=== PATIENT | female | born 1950 | race African-American/Black ===

== ENCOUNTER 2018-01-16 12:08 | Observation (INO) | payer OTHER, SELFPAY ==
--- NOTE | 2018-01-16 12:42 | RAD REPORT ---
EXAM DESCRIPTION: [place] Single View01/16/2018 12:34 pm CLINICAL HISTORY: Chest pain COMPARISON: 2014 FINDINGS: The lungs appear clear of acute infiltrate. The heart is normal size IMPRESSION: No acute abnormalities displayed
[2018-01-16 13:01] LABS: Absolute Lymphocytes (CBC) 2.1 K/uL (0.7-4.9); Absolute Monocytes 0.4 K/uL (0.1-1.3); Absolute Neutrophil 6.7 K/uL (1.8-8.0); Basophils % 0.5 % (0-1.3); Eosinophils % 0.3 % (0-4.4); Lymphocytes % 22.9 % (15.3-44.8); MCH 30.7 pg (27.0-35.0); MCV 90.4 fL (80-100); MPV 9.7 fL (7.6-11.3); Monocytes % 4.6 % (3.3-12.3); RBC Red Blood Cell Count 4.09 M/uL (3.86-4.86)
[2018-01-16 13:24] LABS: ALT/SGPT 28 U/L (12-78); AST/SGOT 32 U/L (15-37); Albumin 4.1 g/dL (3.4-5.0); Alkaline Phosphatase 118 U/L (45-117); BUN Blood Urea Nitrogen 12 mg/dL (7-18); Bicarbonate 27 mmol/L (21-32); Bilirubin Direct 0.2 mg/dL (0-0.2); Bilirubin Total 0.6 mg/dL (0.2-1.0); Glucose Level 110 mg/dL (74-106); NT PRO-BNP 46 pg/mL (<125); Potassium 3.5 mmol/L (3.5-5.1); Protein, Total 8.3 g/dL (6.4-8.2); Sodium Level 140 mmol/L (136-145); Troponin (Emerg Dept Use Only) < 0.02 ng/mL (0.0-0.045)
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
--- NOTE | 2018-01-16 14:37 | EDPHYS ---
Physician Documentation [facility] Name: Sandi Powell Age: 67 yrs Sex: Female : 1950 Arrival Date: 01/16/2018 Time: 12:11 Bed 2 Private MD: None, None ED Physician Johnny Gómez HPI: 01/16 12:29 This 67 yrs old Black Female presents to ER via Ambulatory with complaints of Chest rn Pain > 30 y/o. 12:29 The patient or guardian reports chest pain that is located primarily in the substernal rn area. Onset: this morning. The pain does not radiate. Associated signs and symptoms: Pertinent positives: None. Pertinent negatives: abdominal pain, cough, diaphoresis, headache, palpitations, shortness of breath, syncope, vomiting. The chest pain is described as sharp. Duration: The patient or guardian reports multiple episodes, that are intermittent, the episodes last approximately 15 minute(s). Modifying factors: The symptoms are alleviated by nothing. the symptoms are aggravated by nothing. Severity of pain: At its worst the pain was mild in the emergency department the pain is unchanged. The patient has experienced a previous episode. Reports chest pain, sharp, lasts 15 min at a time, non-radiating, began this morning, no abd pain, no vomiting/cough/fever. . Historical: - Allergies: 12:25 No Known Allergies; ph - Home Meds: 12:25 None [Active]; ph - PMHx: 12:25 None; ph - PSHx: 12:25 None; ph - Immunization history:: Adult Immunizations up to date. - Social history:: Smoking status: Patient/guardian denies using tobacco. - Family history:: not pertinent. - Ebola Screening: : Patient negative for fever greater than or equal to 101.5 degrees Fahrenheit, and additional compatible Ebola Virus Disease symptoms Patient denies exposure to infectious person Patient denies travel to an Ebola-affected area in the 21 days before illness onset No symptoms or risks identified at this time. - Hospitalizations: : No recent hospitalization is reported. ROS: 12:29 Constitutional: Negative for fever, chills, and weight loss, Eyes: Negative for injury, rn pain, redness, and discharge, Neck: Negative for injury, pain, and swelling, Cardiovascular: Negative for palpitations, and edema, Respiratory: Negative for shortness of breath, cough, wheezing, and pleuritic chest pain, Abdomen/GI: Negative for abdominal pain, nausea, vomiting, diarrhea, and constipation, MS/Extremity: Negative for injury and deformity, Skin: Negative for injury, rash, and discoloration, Neuro: Negative for headache, weakness, numbness, tingling, and seizure. Exam: 12:29 Constitutional: This is a well developed, well nourished patient who is awake, alert, rn and in no acute distress. Head/Face: Normocephalic, atraumatic. Eyes: Pupils equal round and reactive to light, extra-ocular motions intact. Lids and lashes normal. Conjunctiva and sclera are non-icteric and not injected. Cornea within normal limits. Periorbital areas with no swelling, redness, or edema. Cardiovascular: Regular rate and rhythm with a normal S1 and S2. No gallops, murmurs, or rubs. No JVD. No pulse deficits. Respiratory: Lungs have equal breath sounds bilaterally, clear to auscultation. No rales, rhonchi or wheezes noted. No increased work of breathing, no retractions or nasal flaring. Abdomen/GI: soft, non-tender MS/ Extremity: Pulses equal, no cyanosis. Neurovascular intact. Full, normal range of motion. Equal circumference. Neuro: Awake and alert, GCS 15, oriented to person, place, time, and situation. Cranial nerves II-XII grossly intact. Motor strength 5/5 in all extremities. Sensory grossly intact. Cerebellar exam normal. Normal gait. Vital Signs: 12:23 BP 176 / 92; Pulse 77; Resp 18; Temp 97.4; Pulse Ox 100% on R/A; Weight 44.45 kg; ph Height 5 ft. 4 in. (162.56 cm); Pain 4/10; 17:00 BP 146 / 88; Pulse 76; Resp 17; Temp 97.4; Pulse Ox 99% on R/A; Pain 4/10; sg 12:23 Body Mass Index 16.82 (44.45 kg, 162.56 cm) ph [place] Coma Score: 17:00 Eye Response: spontaneous(4). Verbal Response: oriented(5). Motor Response: obeys sg commands(6). Total: 15. MDM: 12:17 Patient medically screened. rn 14:33 Differential diagnosis: anxiety, coronary artery disease chest wall pain, esophagitis, rn gastritis, gastroesophageal reflux disease (GERD), pneumonia, pneumothorax, stable angina. Data reviewed: vital signs, nurses notes, lab test result(s), EKG, radiologic studies, and as a result, I will admit patient. 14:34 The patient was given aspirin in the Emergency Department. Counseling: I had a detailed rn discussion with the patient and/or guardian regarding: the historical points, exam findings, and any diagnostic results supporting the discharge/admit diagnosis, lab results, radiology results, the need for further work-up and treatment in the hospital. Admission orders: after a detailed discussion of the patient's condition and case, the admit orders are written by me. ED course: Pt admitted for chest pain to Dr. Lopes.. 01/16 12:21 Order name: NT PRO-BNP; Complete Time: 14:02 rn 01/16 12:21 Order name: Basic Metabolic Panel; Complete Time: 14:02 rn 01/16 12:21 Order name: CBC with Diff; Complete Time: 14:02 rn 01/16 12:21 Order name: LFT's; Complete Time: 14:02 rn 01/16 12:21 Order name: Troponin (emerg Dept Use Only); Complete Time: 14:02 rn 01/16 12:21 Order name: XRAY Chest (1 view); Complete Time: 12:57 rn 01/16 12:21 Order name: EKG; Complete Time: 12:22 rn 01/16 12:21 Order name: Cardiac monitoring; Complete Time: 14:03 rn 01/16 12:21 Order name: EKG - Nurse/Tech; Complete Time: 14:03 rn 01/16 12:21 Order name: IV Saline Lock; Complete Time: 14:03 rn 01/16 12:21 Order name: Labs collected and sent; Complete Time: 14:03 rn 01/16 12:21 Order name: O2 Per Protocol; Complete Time: 14:03 rn 01/16 12:21 Order name: O2 Sat Monitoring; Complete Time: 14:03 rn Administered Medications: 15:30 Drug: Aspirin Chewable Tablet 324 mg Route: PO; sg Disposition: 01/16/18 14:36 Hospitalization ordered by Abilio Lopes for Observation. Preliminary diagnosis is Chest pain, unspecified. - Bed requested for Telemetry/MedSurg (observation). - Status is Observation. sg - Condition is Stable. - Problem is new. - Symptoms have improved. UTI on Admission? No Signatures: Dispatcher [employer] EDEmy Nieves RN RN Refugio Varghese RN RN sg Johnny Gómez MD MD rn Hall, Marielos RN RN ph Corrections: (The following items were deleted from the chart) 17:09 14:36 Hospitalization Ordered by Abilio Lopes DO for Observation. Preliminary diagnosis is Chest pain, unspecified. Bed requested for Telemetry/MedSurg (observation). Status is Observation. Condition is Stable. Problem is new. Symptoms have improved. UTI on Admission? No. rn 17:39 17:09 01/16/2018 14:36 Hospitalization Ordered by Abilio Lopes DO for Observation. Preliminary diagnosis is Chest pain, unspecified. Bed requested for Telemetry/MedSurg (observation). Status is Observation. Condition is Stable. Problem is new. Symptoms have improved. UTI on Admission? No. dw
[2018-01-16] MEDS ORDERED: ASPIRIN 81 MG CHEWABLE TABLET ONE (15:47)
--- NOTE | 2018-01-16 17:04 | P.HP ---
Certification for Inpatient Patient admitted to: Observation With expected LOS: <2 Midnights Patient will require the following post-hospital care: None Practitioner: I am a practitioner with admitting privileges, knowledge of patient current condition, hospital course, and medical plan of care. Services: Services provided to patient in accordance with Admission requirements found in Title 42 Section 412.3 of the Code of Federal Regulations Patient History Date of Service: 01/16/18 Primary Care Provider: None Reason for admission: Chest pain History of Present Illness: 67-year-old female presented to the emergency room with chest pain. Patient reported chest pain today. It was mainly to the substernal region. It did not radiate. She reported the pain and being as sharp. It was associated with some nausea and vomiting. She denied any lightheadedness, headaches or palpitation. Patient came to the ER for evaluation. In the ER patient found to have elevated blood pressure. Initial cardiac enzymes unremarkable. CBC unremarkable. Sodium 140, potassium 3.5, chest x- ray unremarkable. EKG showed LVH. Patient was admitted for further evaluation. When I saw the patient ER, chest pain resolved. Patient appeared stable. Patient denies any past medical history. She denies any alcohol or tobacco use. No significant family history of medical problems. 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 She is single. She has no children. - Social History Smoking Status: Never smoker Alcohol use: No CD- Drugs: No Caffeine use: Yes Place of Residence: Home Review of Systems General: As per HPI Eyes: Unremarkable ENT: Unremarkable Respiratory: Unremarkable Cardiovascular: Chest Pain, As per HPI Gastrointestinal: Unremarkable Genitourinary: Unremarkable Musculoskeletal: Unremarkable Integumentary: Unremarkable Neurological: Unremarkable Lymphatics: Unremarkable Physical Examination - Physical Exam General: Alert, In no apparent distress, Oriented x3, Cooperative HEENT: Atraumatic, Normocephalic, PERRLA, Mucous membr. moist/pink Neck: Supple, No Thyromegaly Respiratory: Clear to auscultation bilaterally, Normal air movement Cardiovascular: Normal pulses, Regular rate/rhythm Gastrointestinal: Normal bowel sounds, Soft and benign, Non-distended, No tenderness, No masses, No rebound, No guarding Musculoskeletal: No contractures, No erythema, No tenderness, No warmth Integumentary: No tenderness/swelling, No erythema, No warmth, No cyanosis Neurological: Normal speech, Normal strength at 5/5 x4 extr, Normal tone, Normal affect - Studies Laboratory Data (last 24 hrs) 01/16/18 12:45: WBC 9.3, Hgb 12.6, Hct 37.0, Plt Count 222 01/16/18 12:45: Sodium 140, Potassium 3.5, BUN 12, Creatinine 0.80, Glucose 110 H, Total Bilirubin 0.6, AST 32, ALT 28, Alkaline Phosphatase 118 H Assessment and Plan - Plan Impression: Chest pain Elevated blood pressure likely hypertension Plan: Chest pain: Patient will be admitted for further evaluation. Will monitor cardiac enzymes. Will provide aspirin and Lovenox for DVT prophylaxis. Will order echocardiogram and cardiac stress test to further evaluate her chest pain. Cardiology consulted to further evaluate. Await recommendations. If workup unremarkable possible discharge tomorrow. Elevated blood pressure likely hypertension: Blood pressure elevated. Will start carvedilol. Will monitor and adjust appropriately. Discharge Plan: Home Plan to discharge in: 24 Hours - Advance Directives Does patient have a Living Will: No Does patient have a Durable POA for Healthcare: Yes - Code Status/Comfort Care Code Status Assessed: Yes (Patient full code.) Time Spent Managing Pts Care (In Minutes): 55
[2018-01-16] MEDS ORDERED: ONDANSETRON 4 MG/2 ML VIAL IV PRN (18:39)
[2018-01-16] MEDS ORDERED: ACETAMINOPHEN 500 MG TAB PO PRN (18:39)
[2018-01-16] MEDS ORDERED: HYDRALAZINE HCL 20 MG/ML VIAL IV PRN (18:39)
[2018-01-16] MEDS ORDERED: NITROGLYCERIN 0.4 MG/TAB SL PRN (18:51)
[2018-01-16 19:40] LABS: CKMB Creatine Kinase MB 6.6 ng/mL (0.3-3.6); Creatine Phosphokinase 327 U/L (26-192); Troponin I < 0.02 ng/mL (0.0-0.045)
[2018-01-16] MEDS: CARVEDILOL 6.25 MG TAB PO SCH (20:13)
[2018-01-16] MEDS: ENOXAPARIN 40 MG/0.4 ML SQ SCH (20:14)
[2018-01-16 21:07] VITALS: BMI 16.8
[2018-01-17 03:45] LABS: Absolute Lymphocytes (CBC) 2.3 K/uL (0.7-4.9); Absolute Monocytes 0.5 K/uL (0.1-1.3); Absolute Neutrophil 4.7 K/uL (1.8-8.0); Basophils % 0.2 % (0-1.3); Eosinophils % 0.4 % (0-4.4); Hematocrit 33.6 % (36.0-45.0); Lymphocytes % 30.5 % (15.3-44.8); MCH 30.5 pg (27.0-35.0); MCV 90.4 fL (80-100); MPV 9.5 fL (7.6-11.3); Monocytes % 6.8 % (3.3-12.3); RBC Red Blood Cell Count 3.71 M/uL (3.86-4.86)
[2018-01-17 03:53] LABS: BUN Blood Urea Nitrogen 14 mg/dL (7-18); Bicarbonate 28 mmol/L (21-32); Glucose Level 90 mg/dL (74-106); HDL Cholesterol 57 mg/dL (40-60); LDL Cholesterol, Calculated 132 (<130); Magnesium 2.3 mg/dL (1.8-2.4); Potassium 3.9 mmol/L (3.5-5.1); Sodium Level 140 mmol/L (136-145)
[2018-01-17 04:11] LABS: CKMB Creatine Kinase MB 6.6 ng/mL (0.3-3.6); Creatine Phosphokinase 277 U/L (26-192); Troponin I < 0.02 ng/mL (0.0-0.045)
[2018-01-17 05:27] LABS: Urine Appearance CLOUDY; Urine Bilirubin NEGATIVE (NEG); Urine Blood TRACE (NEG); Urine Color YELLOW; Urine Glucose NEGATIVE (NEG); Urine Protein TRACE (NEG); Urine Specific Gravity 1.025 (1.005-1.030); Urine Urobilinogen 0.2 mg/dL (0.2-1.0); Urine pH 6.5 (5.0-7.0)
[2018-01-17 05:36] LABS: Urine Microscopic Reflex ORDER UMIC
[2018-01-17 05:39] LABS: Urine Bacteria LOADED /HPF (<20); Urine Culture Reflex Order REFLEXED; Urine RBC <5 /HPF (NONE SEEN)
--- NOTE | 2018-01-17 06:59 | EKG ---
Test Date: 2018-01-16 Test Time: 12:23:47 [employer]: RASHEED MEASUREMENT RESULTS: Intervals: Rate: 66 DC: 148 QRSD: 82 QT: 436 QTc: 457 [place]: P: 78 DC: 148 QRS: 66 T: 57 INTERPRETIVE STATEMENTS: Normal sinus rhythm Voltage criteria for left ventricular hypertrophy Abnormal ECG Compared to ECG 04/10/2014 23:32:06 T-wave abnormality no longer present Electronically Signed On 01-17-18 06:59:11 [employer]EST WORKER by Cesar Hernandez
[2018-01-17] MEDS ORDERED: PANTOPRAZOLE 40MG TABLET PO SCH (07:30)
[2018-01-17] MEDS: ENOXAPARIN 40 MG/0.4 ML SQ SCH (08:43)
[2018-01-17] MEDS: CARVEDILOL 6.25 MG TAB PO SCH (08:43)
[2018-01-17] MEDS ORDERED: CEFTRIAXONE/SWI 1gm 1 GM/10 ML SYR IV SCH (09:00)
[2018-01-17] MEDS ORDERED: ASPIRIN EC 81 MG TAB PO SCH (09:00)
[2018-01-17] MEDS ORDERED: REGADENOSON 0.4 MG/5 ML SYR IV ONE (09:08)
[2018-01-17 09:22] VITALS: O2SAT 96
--- NOTE | 2018-01-17 11:14 | ECHO ---
HEIGHT: 5 ft 4 in WEIGHT: 98 lb 0 oz DATE OF STUDY: 01/17/[address]: Abilio Lopes DO 2-DIMENSIONAL: YES M.MODE: YES DOPPLER: YES COLOR FLOW: YES TDS: NO PORTABLE: NO DEFINITY: NO BUBBLE STUDY: NO DIAGNOSIS: CHEST PAIN/HYPERTENSION CARDIAC HISTORY: CATHERIZATION: NO SURGERY: NO PROSTHETIC VALVE: NO PACEMAKER: NO MEASUREMENTS (cm) DIASTOLIC (NORMALS) SYSTOLIC (NORMALS) IVSd 1.0 (0.6-1.2) LA Diam 3.6 (1.9-4.0) LVEF 78% LVIDd 4.2 (3.5-5.7) LVIDs 2.2 (2.0-3.5) %FS 47% LVPWd 1.2 (0.6-1.2) Ao Diam 2.3 (2.0-3.7) 2 DIMENSIONAL ASSESSMENT: RIGHT ATRIUM: NORMAL LEFT ATRIUM: NORMAL RIGHT VENTRICLE: NORMAL LEFT VENTRICLE: NORMAL TRICUSPID VALVE: NORMAL MITRAL VALVE: NORMAL PULMONIC VALVE: NORMAL AORTIC VALVE: NORMAL PERICARDIAL EFFUSION: NONE AORTIC ROOT: NORMAL LEFT VENTRICULAR WALL MOTION: NORMAL. DOPPLER/COLOR FLOW: TRACE OF AORTIC AND TRICUSPID REGURGITATION. NORMAL RIGHT VENTRICULAR SYSTOLIC PRESSURE. COMMENTS: NORMAL 2D ECHO. TRACE OF AORTIC AND TRICUSPID REGURGITATION. TECHNOLOGIST: DIANELYS ALATORRE
--- NOTE | 2018-01-17 11:25 | TREADPHA ---
DX: CHEST PAIN, HYPERTENSION Date of Study: 01/17/2018 Ht: 5 4 Wt: 98 lb 0 oz Consulting Physician: SRINIVAS MEDICATIONS: TYLENOL, COREG, ASPIRIN, APRESOLINE, ZOFRAN, NITROSTAT, LOVENOX, PROTONIX HISTORY: 67 YEAR OLD FEMALE WITH COMPLAINTS OF CHEST PAIN. NO MEDICAL HISTORY. PHYSICIAL EXAMINATION: RESTING B.P.: 127/80 RESTING H.R.: 68 RESTING EKG: SINUS, LEFT VENTRICULAR HYPERTROPHY, NON SPECIFIC T WAVE. PROTOCOL: LEXISCAN EXERCISE TIME: 3:30 B.P. AT PEAK STRESS: 115/89 IMPRESSION: LEXISCAN INJECTED. CARDIOLITE INJECTED PER PROTOCOL. SEE NUCLEAR MEDICINE REPORT. NO SUPRAVENTRICULAR TACHYCARDIA. NO VENTRICULAR TACHYCARDIA. DENIED CHEST PAIN. NON DIAGNOSTIC EKG WITH LEXISCAN STRESS.
--- NOTE | 2018-01-17 11:35 | RAD REPORT ---
EXAM DESCRIPTION: NM - Rest Stress Cardiac Imaging - 01/17/2018 11:20 am CLINICAL HISTORY: CP Chest pain. COMPARISON: No comparisons TECHNIQUE: The patient was administered approximately 10mCi of Tc 99m Sestamibi prior to resting SPE CT imaging of the heart. The patient was then administered approximately 30 mCi of Tc 99m Sestamibi f ollowing exercise or pharmacologic stress. Multiplanar SPECT images were reviewed. FINDINGS: No stress induced ischemic defect is seen to suggest stress induced ischemia. No fixed def ect is seen to suggest hibernating myocardium or scarred myocardium. The end diastolic volume is 78 ml, the end systolic volume is 30 ml, and the ejection fraction is 61 %. IMPRESSION: No stress induced ischemia.
--- NOTE | 2018-01-17 12:10 | CON ---
Chief Complaint: Chest pain. History Of Present Illness: Ms. Powell awoke yesterday feeling fine. After being at work for about an hour, she started to have pain. It was epigastric, nonradiating, constant, accompanied by nausea and vomiting. She threw up 3 times getting a ride home before she came to the hospital. Since she has been here, there has been no EKG or enzyme evidence of any myocardial necrosis. The patient does not take any medications at home. There is no history of diabetes, hypertension, dyslipidemia, stro ke, myocardial infarction, vascular disease. She uses no tobacco. Laboratory Data: Significant for all normal troponins. TSH is slightly elevated. Her complete bloo d count is within normal limits, although the MCV is borderline elevated. Physical Examination: General: She is 5 feet 4 inches, 98 pounds. Blood pressure 143/74, pulse 94, temperature 97.8, hear t rate 70. Lungs: Clear. Heart: Normal. Abdomen: Soft. Extremities: Normal. No cyanosis, clubbing, or edema. Imaging: EKG reveals sinus rhythm, voltage for LVH. Impression: Ms. Powell probably should be on thyroid medicine. Her chest pain does not seem to be an acute coronary syndrome. It would be more consistent with a viral gastroenteritis that is already resolved. I think if we do a nuclear stress test and echo and are normal we could end the workup an d she should probably make contact with the primary care physician and have her thyroid treated and blood pressure treatment initiated t o get her blood pressure slightly lower. SH/MODL Voice ID: [id number] Report ID: [id number]
--- NOTE | 2018-01-17 13:38 | P.DS ---
Admission Date: 01/16/18 Discharge Date: 01/17/18 Primary Care Provider: None Disposition: ROUTINE DISCHARGE Discharge Condition: GOOD Reason for Admission: Chest pain Consultations: Cardiology-Dr. Hernandez Procedures: ECHO: Ejection fraction 78% LEFT VENTRICULAR WALL MOTION: NORMAL. DOPPLER/COLOR FLOW: TRACE OF AORTIC AND TRICUSPID REGURGITATION. NORMAL RIGHT VENTRICULAR SYSTOLIC PRESSURE. COMMENTS: NORMAL 2D ECHO. TRACE OF AORTIC AND TRICUSPID REGURGITATION. Cardiac stress test: No stress-induced ischemia noted Medical problem list: Chest pain, atypical Hypertension with noted EKG showing LVH UTI Hyperlipidemia Subclinical hypothyroidism Brief History of Present Illness: 67-year-old female presented to the emergency room with chest pain. Patient reported chest pain today. It was mainly to the substernal region. It did not radiate. She reported the pain and being as sharp. It was associated with some nausea and vomiting. She denied any lightheadedness, headaches or palpitation. Patient came to the ER for evaluation. In the ER patient found to have elevated blood pressure. Initial cardiac enzymes unremarkable. CBC unremarkable. Sodium 140, potassium 3.5, chest x- ray unremarkable. EKG showed LVH. Patient was admitted for further evaluation. When I saw the patient ER, chest pain resolved. Patient appeared stable. Patient denies any past medical history. She denies any alcohol or tobacco use. No significant family history of medical problems. Hospital Course: Patient presented with atypical chest pain. EKG showed LVH. Patient also had elevated blood pressure indicating hypertension. The patient was admitted for further evaluation and treatment. Repeat troponin unremarkable. Cardiology was consulted. Cardiology recommended echocardiogram and cardiac stress test to further evaluate. Echocardiogram unremarkable. Cardiac stress test showed no stress-induced ischemia. At discharge patient will continue with aspirin 81 mg daily. Patient has been started on blood pressure medication-carvedilol 6.25 mg 1 pill twice daily with good control. This medication will be continued at discharge. Recommendation is to maintain blood pressures less 150/ 80. Further adjustment can be done by her PCP. Patient will need to establish care to follow up this hospitalization. Patient was found to have a UTI. At discharge she will continue with Bactrim DS 1 pill twice daily for 7 days. UTI prevention will be provided. Patient will need to have her PCP follow up on urine culture results. Patient has hyperlipidemia. LDL 132. At discharge patient will be started on Lipitor 20 mg daily. Recommendation to recheck lab-fasting lipid panel in 4-6 weeks to monitor her progress. Patient found to have subclinical hypothyroidism. Tsh elevated with normal free T4. Recommendation to recheck tsh and free T4 in 4-6 weeks to reassess. Patient may require medication in the future if this continues to be abnormal. Vital Signs/Physical Exam: Temp Pulse Resp BP Pulse Ox 98.1 F 68 16 125/70 97 01/17/18 12:00 18 12:00 01/17/18 12:00 01/17/18 12:00 01/17/18 12:00 General: Alert, In no apparent distress, Oriented x3, Cooperative HEENT: Atraumatic Neck: Supple Respiratory: Clear to auscultation bilaterally, Normal air movement Cardiovascular: Normal pulses, Regular rate/rhythm Gastrointestinal: Normal bowel sounds, Soft and benign, Non-distended, No tenderness, No masses, No rebound, No guarding Musculoskeletal: No erythema, No tenderness, No warmth Integumentary: No tenderness/swelling, No erythema, No warmth, No cyanosis Neurological: Normal speech, Normal strength at 5/5 x4 extr, Normal tone, Normal affect Laboratory Data at Discharge: WBC 7.5 K/uL (4.3-10.9) D 01/17/18 03:18 Hgb 11.3 g/dL (12.0-15.0) L 01/17/18 03:18 Hct 33.6 % (36.0-45.0) L 01/17/18 03:18 Plt Count 196 K/uL (152-406) 01/17/18 03:18 Sodium 140 mmol/L (136-145) 01/17/18 03:18 Potassium 3.9 mmol/L (3.5-5.1) 01/17/18 03:18 BUN 14 mg/dL (7-18) 01/17/18 03:18 Creatinine 0.60 mg/dL (0.55-1.3) 01/17/18 03:18 Glucose 90 mg/dL (74-106) 01/17/18 03:18 Magnesium 2.3 mg/dL (1.8-2.4) 01/17/18 03:18 Total Bilirubin 0.6 mg/dL (0.2-1.0) 01/16/18 12:45 AST 32 U/L (15-37) 01/16/18 12:45 ALT 28 U/L (12-78) 01/16/18 12:45 Alkaline Phosphatase 118 U/L (45-117) H 01/16/18 12:45 Troponin I < 0.02 ng/mL (0.0-0.045) 01/17/18 03:18 Triglycerides 59 mg/dL (<150) 01/17/18 03:18 Cholesterol 201 mg/dL (<200) H 01/17/18 03:18 HDL Cholesterol 57 mg/dL (40-60) 01/17/18 03:18 Cholesterol/HDL Ratio 3.53 01/17/18 03:18 Home Medications: Aspirin [Aspirin EC 81 MG] 81 mg PO DAILY #90 tablet. 01/17/18 Atorvastatin Calcium [Lipitor] 20 mg PO BEDTIME #30 tab 01/17/18 Carvedilol [Coreg*] 6.25 mg PO BID #60 tab 01/17/18 Sulfamethoxazole/Trimethoprim [Bactrim Ds Tablet] 1 each PO BID #14 tablet 01/17 New Medications: Aspirin [Aspirin EC 81 MG] 81 mg PO DAILY #90 tablet. Atorvastatin Calcium [Lipitor] 20 mg PO BEDTIME #30 tab Carvedilol [Coreg*] 6.25 mg PO BID #60 tab Sulfamethoxazole/Trimethoprim [Bactrim Ds Tablet] 1 each PO BID #14 tablet Patient Discharge Instructions: 1. Patient will need to establish care with a PCP to follow up this hospitalization. 2. Patient presented with atypical chest pain. EKG showed LVH. Patient also had elevated blood pressure indicating hypertension. The patient was admitted for further evaluation and treatment. Repeat troponin unremarkable. Cardiology was consulted. Cardiology recommended echocardiogram and cardiac stress test to further evaluate. Echocardiogram unremarkable. Cardiac stress test showed no stress- induced ischemia. At discharge patient will continue with aspirin 81 mg daily. Patient has been started on blood pressure medication-carvedilol 6.25 mg 1 pill twice daily with good control. This medication will be continued at discharge. Recommendation is to maintain blood pressures less 150/80. Further adjustment can be done by her PCP. Patient will need to establish care to follow up this hospitalization. 3. Patient was found to have a UTI. At discharge she will continue with Bactrim DS 1 pill twice daily for 7 days. UTI prevention will be provided. Patient will need to have her PCP follow up on urine culture results. 4. Patient has hyperlipidemia. LDL 132. At discharge patient will be started on Lipitor 20 mg daily. Recommendation to recheck lab- fasting lipid panel in 4-6 weeks to monitor her progress. 5. Patient found to have subclinical hypothyroidism. Tsh elevated with normal free T4. Recommendation to recheck tsh and free T4 in 4-6 weeks to reassess. Patient may require medication in the future if this continues to be abnormal. Diet: AHA Activity: Ad migel Time spent managing pt's care (in minutes): 55
[2018-01-17 17:19] VITALS: BP 114/70; TEMP 98.5
== END 2018-01-17 17:50 | disposition home or self-care (01) ==
LOC: ER 12:08 → ERHOLD 15:20 → 4TH 17:24
PROVIDERS: ADMIT Family Medicine; ATTEND Family Medicine
DX: R07.89 Other chest pain (principal); I10 Essential (primary) hypertension; N39.0 Urinary tract infection, site not specified; E78.5 Hyperlipidemia, unspecified; E02 Subclinical iodine-deficiency hypothyroidism
CPT/HCPCS: 36415; 71045; 78452; 80048; 80061; 80076; 81003; 81015; 82550; 82553; 83735; 83880; 84439; 84443; 84484; 85025; 87077; 87086; 87088; 87186; 93005; 93017; 93306; 99285; A9500; G0378; J0696; J1650; J2785

== ENCOUNTER 2019-02-21 22:35 | Observation (INO) | payer OTHER ==
[2019-02-21] MEDS ORDERED: NA CHLORIDE 0.9% 1,000 ML ONE (23:04)
[2019-02-21] MEDS ORDERED: ONDANSETRON 4 MG/2 ML VIAL ONE (23:04)
[2019-02-21] MEDS ORDERED: ASPIRIN 81 MG CHEWABLE TABLET ONE (23:04)
[2019-02-21 23:18] LABS: Protime INR 1.01
[2019-02-21 23:19] LABS: Absolute Lymphocytes (CBC) 1.9 K/uL (0.7-4.9); Basophils % 0.4 % (0-1.3); Hematocrit 40.9 % (36.0-45.0); Lymphocytes % 20.6 % (15.3-44.8); MPV 9.8 fL (7.6-11.3); RBC Red Blood Cell Count 4.61 M/uL (3.86-4.86)
[2019-02-21 23:36] LABS: ALT/SGPT 44 U/L (12-78); AST/SGOT 37 U/L (15-37); Albumin 4.2 g/dL (3.4-5.0); Alkaline Phosphatase 120 U/L (45-117); BUN Blood Urea Nitrogen 12 mg/dL (7-18); Bicarbonate 24 mmol/L (21-32); Bilirubin Direct 0.2 mg/dL (0-0.2); Bilirubin Total 0.8 mg/dL (0.2-1.0); Glucose Level 138 mg/dL (74-106); Magnesium 1.9 mg/dL (1.8-2.4); NT PRO-BNP 26 pg/mL (<125); Potassium 4.1 mmol/L (3.5-5.1); Protein, Total 8.6 g/dL (6.4-8.2); Sodium Level 143 mmol/L (136-145); Troponin (Emerg Dept Use Only) < 0.02 ng/mL (0.0-0.045)
[2019-02-21] MEDS ORDERED: LIDOCAINE VISCOUS 2% SOLN 15 ML UDC ONE (23:59)
[2019-02-21] MEDS ORDERED: MAGNE/ALUM HYDROXD 30 ML UCUP ONE (23:59)
[2019-02-22] MEDS ORDERED: NITROGLYCERIN 1 GM PKT TD ONE (00:51)
--- NOTE | 2019-02-22 00:57 | EDPHYS ---
Physician Documentation [facility] Name: Sandi Powell Age: 69 yrs Sex: Female : 1950 Arrival Date: 02/21/2019 Time: 22:40 Bed 15 Private MD: ED Physician Philip Lala HPI: 02/22 00:21 This 69 yrs old Black Female presents to ER via Ambulatory with complaints of Chest tw4 Pain, Vomiting. 00:21 The patient or guardian reports chest pain that is located primarily in the anterior tw4 chest wall, left. Onset: just prior to arrival, today. The pain does not radiate. Associated signs and symptoms: Pertinent positives: abdominal pain, nausea, vomiting, Pertinent negatives: cough, diaphoresis, dizziness, headache, lower extremity pain, lower extremity swelling, lightheadedness, near syncope, palpitations, recent travel, shortness of breath, syncope. The chest pain is described as sharp. Duration: The patient or guardian reports a single episode, that is still ongoing, but improving. Modifying factors: The symptoms are alleviated by nothing. the symptoms are aggravated by nothing. Severity of pain: At its worst the pain was moderate in the emergency department the pain is unchanged. The patient has not experienced similar symptoms in the past. Historical: - Allergies: 02/21 22:45 No Known Allergies; mg2 - Home Meds: 22:45 None [Active]; mg2 - PMHx: 22:45 None; mg2 - PSHx: 22:45 None; mg2 - Immunization history:: Flu vaccine is up to date. - Social history:: Smoking status: Patient/guardian denies using tobacco, Patient/guardian denies using alcohol, street drugs, IV drugs. - Ebola Screening: : No symptoms or risks identified at this time. ROS: 02/22 00:21 Constitutional: Negative for fever, chills, and weight loss, Eyes: Negative for injury, tw4 pain, redness, and discharge, Neck: Negative for injury, pain, and swelling, Respiratory: Negative for shortness of breath, cough, wheezing, and pleuritic chest pain, Back: Negative for injury and pain, MS/Extremity: Negative for injury and deformity, Skin: Negative for injury, rash, and discoloration, Neuro: Negative for headache, weakness, numbness, tingling, and seizure. Cardiovascular: Positive for chest pain, Negative for edema, orthopnea, palpitations, paroxysmal nocturnal dyspnea. Abdomen/GI: Positive for abdominal pain, nausea and vomiting, nausea, vomiting, and diarrhea, nausea, vomiting, abdominal cramps, Negative for abdominal distension, anorexia, dysphagia, hematemesis, black/tarry stool, rectal pain, rectal bleeding, bowel incontinence. Exam: 00:21 Constitutional: This is a well developed, well nourished patient who is awake, alert, tw4 and in no acute distress. Head/Face: Normocephalic, atraumatic. Chest/axilla: Normal chest wall appearance and motion. Nontender with no deformity. No lesions are appreciated. Cardiovascular: Regular rate and rhythm with a normal S1 and S2. No gallops, murmurs, or rubs. Normal PMI, no JVD. No pulse deficits. Respiratory: Lungs have equal breath sounds bilaterally, clear to auscultation and percussion. No rales, rhonchi or wheezes noted. No increased work of breathing, no retractions or nasal flaring. 00:21 Back: No spinal tenderness. No costovertebral tenderness. Full range of motion. Skin: Warm, dry with normal turgor. Normal color with no rashes, no lesions, and no evidence of cellulitis. MS/ Extremity: Pulses equal, no cyanosis. Neurovascular intact. Full, normal range of motion. Neuro: Awake and alert, GCS 15, oriented to person, place, time, and situation. Cranial nerves II-XII grossly intact. Motor strength 5/5 in all extremities. Sensory grossly intact. Cerebellar exam normal. Normal gait. 00:21 Abdomen/GI: Inspection: abdomen appears normal, Bowel sounds: diminished, Palpation: moderate abdominal tenderness, in the epigastric area. Vital Signs: 02/21 22:44 BP 157 / 96; Pulse 108; Resp 18; Temp 99; Pulse Ox 99% on R/A; Weight 47.63 kg; Height mg2 5 ft. 4 in. (162.56 cm); Pain 8/10; 02/22 00:02 BP 159 / 90; Pulse 94; Resp 17 S; Pulse Ox 100% on R/A; jd3 00:55 BP 146 / 90; Pulse 79; Resp 18 S; Pulse Ox 99% on R/A; jd3 01:56 BP 159 / 88; Pulse 81; Resp 16 S; Pulse Ox 98% on R/A; jd3 02/21 22:44 Body Mass Index 18.02 (47.63 kg, 162.56 cm) mg2 MDM: 02/21 22:47 Patient medically screened. 02/22 00:21 Differential diagnosis: abnormal EKG, cholecystitis, Cholelithiasis costochondritis, tw4 pulmonary embolus, stable angina, thoracic aortic disection. Data reviewed: vital signs, nurses notes. Data reviewed: lab test result(s), cardiac enzymes, CBC, electrolytes, EKG. Data interpreted: dietetic aide: rhythm is sinus tachycardia, Pulse oximetry: Interpretation: normal. Test interpretation: by ED physician or midlevel provider: ECG, plain radiologic studies. Counseling: I had a detailed discussion with the patient and/or guardian regarding: the historical points, exam findings, and any diagnostic results supporting the discharge/admit diagnosis. 02/21 22:47 Order name: Basic Metabolic Panel; Complete Time: 00:20 02/22 00:20 Interpretation: Normal except: GLUC 138; CL 110; GFR 84. 02/21 22:47 Order name: CBC with Diff; Complete Time: 00:20 02/22 00:21 Interpretation: Normal except: THOM% 74.8. 02/21 22:47 Order name: LFT's; Complete Time: 00:21 02/22 00:21 Interpretation: Normal except: ALK 120; TP 8.6; GLOB 4.4; A/G 1.0. 02/21 22:47 Order name: Magnesium; Complete Time: 00:21 02/22 00:21 Interpretation: Within normal limits: MG 1.9. 02/21 22:47 Order name: NT PRO-BNP; Complete Time: 00:21 02/22 00:21 Interpretation: Within normal limits: NT PRO-BNP 26. 02/21 22:47 Order name: PT-INR; Complete Time: 00:21 02/22 00:21 Interpretation: Within normal limits: PT 11.9. 02/21 22:47 Order name: Troponin (emerg Dept Use Only); Complete Time: 00:21 02/22 00:21 Interpretation: Within normal limits: TROPED < 0.02. tw4 02/21 22:47 Order name: XRAY Chest (1 view) [facility] 02/22 01:04 Order name: Echo with Doppler [facility] 02/22 01:05 Order name: Lipid Profile [facility] 02/22 01:05 Order name: Lipid Profile [facility] 02/22 01:05 Order name: Troponin I [facility] 02/22 01:05 Order name: Troponin I [facility] 02/22 01:05 Order name: Troponin I [facility] 02/21 22:47 Order name: EKG; Complete Time: 22:48 02/21 22:47 Order name: Cardiac monitoring; Complete Time: 22:58 02/21 22:47 Order name: EKG - Nurse/Tech; Complete Time: 22:58 02/21 22:47 Order name: IV Saline Lock; Complete Time: 22:58 02/21 22:47 Order name: Labs collected and sent; Complete Time: 22:58 02/21 22:47 Order name: O2 Per Protocol; Complete Time: 22:58 02/21 22:47 Order name: O2 Sat Monitoring; Complete Time: 22:58 02/22 01:04 Order name: Heart Healthy [facility] 02/22 01:04 Order name: EKG Electrocardiogram [facility] 02/22 01:04 Order name: EKG Electrocardiogram [facility] EC:21 Rate is 102 beats/min. Rhythm is regular. QRS [place] is Normal. SD interval is normal. tw4 QRS interval is normal. QT interval is normal. No Q waves. T waves are Normal. No ST changes noted. Clinical impression: NSR w/ Non-specific ST/T Changes and Sinus tachycardia. Interpreted by me. Reviewed by me. Administered Medications: 02/21 23:08 Drug: NS 0.9% 1000 ml Route: IV; Rate: 1 bolus; Site: right antecubital; [facility] 02/22 01:57 Follow up: Response: No adverse reaction; IV Status: Completed infusion; IV Intake: jd3 1000ml 02/21 23:08 Drug: Zofran 4 mg Route: IVP; Site: right antecubital; d3 02/22 00:05 Follow up: Response: No adverse reaction [facility] 02/21 23:08 Drug: Aspirin Chewable Tablet 324 mg Route: PO; 02/22 00:05 Follow up: Response: No adverse reaction jd3 00:01 Drug: GI Cocktail without - (Maalox Suspension 30 ml, Lidocaine Liquid 2 % 15 jd3 ml) Route: PO; 01:00 Follow up: Response: No adverse reaction jd3 00:52 Drug: Nitro-Bid Ointment 2 % 0.5 inches Route: Transdermal; Site: anterior chest wall; jd3 01:50 Follow up: Response: No adverse reaction; Pain is decreased jd3 01:28 Drug: Zofran 4 mg Route: IVP; Site: right antecubital; jd3 01:59 Follow up: Response: No adverse reaction jd3 Disposition: 02/22/19 00:56 Hospitalization ordered by Crystal May for Observation. Preliminary diagnosis are Angina pectoris, unspecified, Nausea with vomiting, unspecified. - Bed requested for Telemetry/MedSurg (observation). - Status is Observation. jd3 - Condition is Stable. - Problem is new. - Symptoms have improved. UTI on Admission? No Signatures: Dispatcher [employer] EDMS Cammie Butler RN RN tl1 Lavon Acosta RN RN jd3 Philip Lala MD MD tw4 Buddy Blevins RN RN mg2 Corrections: (The following items were deleted from the chart) 00:56 00:56 Hospitalization Ordered by Crystal May MD for Observation. Preliminary tw4 diagnosis is Angina pectoris, unspecified. Bed requested for Telemetry/MedSurg (observation). Status is Observation. Condition is Stable. Problem is new. Symptoms have improved. UTI on Admission? No. tw4 01:34 00:56 02/22/2019 00:56 Hospitalization Ordered by Crystal May MD for Observation. tl1 Preliminary diagnosis is Angina pectoris, unspecified; Nausea with vomiting, unspecified. Bed requested for Telemetry/MedSurg (observation). Status is Observation. Condition is Stable. Problem is new. Symptoms have improved. UTI on Admission? No. tw4 02:15 01:34 02/22/2019 00:56 Hospitalization Ordered by Crystal May MD for Observation. jd3 Preliminary diagnosis is Angina pectoris, unspecified; Nausea with vomiting, unspecified. Bed requested for Telemetry/MedSurg (observation). Status is Observation. Condition is Stable. Problem is new. Symptoms have improved. UTI on Admission? No. tl1
--- NOTE | 2019-02-22 00:57 | ER ---
Nurse's Notes [facility] Name: Sandi Powell Age: 69 yrs Sex: Female : 1950 Arrival Date: 02/21/2019 Time: 22:40 Bed 15 Private MD: Diagnosis: Angina pectoris, unspecified;Nausea with vomiting, unspecified Presentation: 02/21 22:42 Presenting complaint: Patient states: i have chest pain and vomiting x4 this evening. mg2 Transition of care: patient was not received from another setting of care. Onset of symptoms was February 21, 2019. Risk Assessment: Do you want to hurt yourself or someone else? Patient reports no desire to harm self or others. Initial Sepsis Screen: Does the patient meet any 2 criteria? No. Patient's initial sepsis screen is negative. Does the patient have a suspected source of infection? No. Patient's initial sepsis screen is negative. Care prior to arrival: None. 22:42 Method Of Arrival: Ambulatory mg2 22:42 Acuity: PATRICIA 3 mg2 Historical: - Allergies: 22:45 No Known Allergies; mg2 - Home Meds: 22:45 None [Active]; mg2 - PMHx: 22:45 None; mg2 - PSHx: 22:45 None; mg2 - Immunization history:: Flu vaccine is up to date. - Social history:: Smoking status: Patient/guardian denies using tobacco, Patient/guardian denies using alcohol, street drugs, IV drugs. - Ebola Screening: : No symptoms or risks identified at this time. Screenin:19 Abuse screen: Denies threats or abuse. Nutritional screening: No deficits noted. jd3 Tuberculosis screening: No symptoms or risk factors identified. Fall Risk IV access (20 points). Ambulatory Aid- None/Bed Rest/Nurse Assist (0 pts). Gait- Normal/Bed Rest/Wheelchair (0 pts) Mental Status- Oriented to own ability (0 pts). Total [place] Scale indicates No Risk (0-24 pts). Assessment: 22:55 General: Appears in no apparent distress. uncomfortable, Behavior is calm, cooperative, jd3 appropriate for age. Pain: Complains of pain in chest and epigastric area Pain does not radiate. Quality of pain is described as pressure, Pain began suddenly. Neuro: Level of Consciousness is awake, alert, obeys commands, Oriented to person, place, time, situation. Cardiovascular: Reports None Heart tones S1 S2 present Capillary refill < 3 seconds Patient's skin is warm and dry. Rhythm is sinus tachycardia. Respiratory: Airway is patent Respiratory effort is even, unlabored, Respiratory pattern is regular, symmetrical, Breath sounds are clear bilaterally. Denies cough, shortness of breath. GI: Abdomen is non-distended, Bowel sounds present X 4 quads. Abd is soft and non tender X 4 quads. Reports nausea, vomiting, Patient currently denies constipation, diarrhea. : No signs and/or symptoms were reported regarding the genitourinary system. EENT: No signs and/or symptoms were reported regarding the EENT system. Derm: Skin is intact, Skin is dry, Skin is normal, Skin temperature is warm. Musculoskeletal: Circulation, motion, and sensation intact. Range of motion: intact in all extremities. 23:57 Reassessment: Patient appears in no apparent distress at this time. Patient and/or jd3 family updated on plan of care and expected duration. Pain level reassessed. Patient is alert, oriented x 3, equal unlabored respirations, skin warm/dry/pink. pt reporting nausea feeling better, but continued pain in her abdomen. provider notified. 02/22 00:50 Reassessment: Patient appears in no apparent distress at this time. Patient and/or jd3 family updated on plan of care and expected duration. Pain level reassessed. Patient is alert, oriented x 3, equal unlabored respirations, skin warm/dry/pink. pt reporting continued pain, provider notified. 01:53 Reassessment: Patient appears in no apparent distress at this time. Patient and/or jd3 family updated on plan of care and expected duration. Pain level reassessed. Patient is alert, oriented x 3, equal unlabored respirations, skin warm/dry/pink. report given to Malia CARPENTER, nurse for room 428. Patient states feeling better. Vital Signs: 02/21 22:44 BP 157 / 96; Pulse 108; Resp 18; Temp 99; Pulse Ox 99% on R/A; Weight 47.63 kg; Height mg2 5 ft. 4 in. (162.56 cm); Pain 8/10; 02/22 00:02 BP 159 / 90; Pulse 94; Resp 17 S; Pulse Ox 100% on R/A; jd3 00:55 BP 146 / 90; Pulse 79; Resp 18 S; Pulse Ox 99% on R/A; jd3 01:56 BP 159 / 88; Pulse 81; Resp 16 S; Pulse Ox 98% on R/A; jd3 02/21 22:44 Body Mass Index 18.02 (47.63 kg, 162.56 cm) mg2 ED Course: 02/21 22:40 Patient arrived in ED. jg7 22:44 Triage completed. mg2 22:45 Arm band placed on. mg2 22:47 Philip Lala MD is Attending Physician. tw4 22:58 Lavon Acosta RN is Primary Nurse. jd3 23:00 Inserted saline lock: 20 gauge in right antecubital area, using aseptic technique. mg2 Blood collected. 23:20 Patient has correct armband on for positive identification. Bed in low position. Call jd3 light in reach. Side rails up X 1. Adult w/ patient. library monitor on. Pulse ox on. NIBP on. 23:20 Patient maintains SpO2 saturation greater than 95% on room air. jd3 23:26 XRAY Chest (1 view) In Process Unspecified. EDMS 02/22 00:56 Crystal May MD is Hospitalizing Provider. tw4 01:55 No provider procedures requiring assistance completed. Patient admitted, IV remains in jd3 place. Administered Medications: 02/21 23:08 Drug: NS 0.9% 1000 ml Route: IV; Rate: 1 bolus; Site: right antecubital; jd3 02/22 01:57 Follow up: Response: No adverse reaction; IV Status: Completed infusion; IV Intake: jd3 1000ml 02/21 23:08 Drug: Zofran 4 mg Route: IVP; Site: right antecubital; jd3 02/22 00:05 Follow up: Response: No adverse reaction jd3 02/21 23:08 Drug: Aspirin Chewable Tablet 324 mg Route: PO; jd3 02/22 00:05 Follow up: Response: No adverse reaction jd3 00:01 Drug: GI Cocktail without - (Maalox Suspension 30 ml, Lidocaine Liquid 2 % 15 jd3 ml) Route: PO; 01:00 Follow up: Response: No adverse reaction jd3 00:52 Drug: Nitro-Bid Ointment 2 % 0.5 inches Route: Transdermal; Site: anterior chest wall; jd3 01:50 Follow up: Response: No adverse reaction; Pain is decreased jd3 01:28 Drug: Zofran 4 mg Route: IVP; Site: right antecubital; jd3 01:59 Follow up: Response: No adverse reaction jd3 Intake: 01:57 IV: 1000ml; Total: 1000ml. jd3 Outcome: 00:56 Decision to Hospitalize by Provider. tw4 01:55 Admitted to Tele accompanied by nurse, via wheelchair, room 428, with chart, Report jd3 called to Malia CARPENTER 01:55 Condition: stable 01:55 Instructed on the need for admit, Demonstrated understanding of instructions. 02:15 Patient left the ED. jd3 Signatures: Dispatcher [employer] Lavon Orosco RN RN jd3 Wadley, Terrence, MD MD tw4 Buddy Blevins RN RN [facility] Leona Leg7
[2019-02-22] MEDS ORDERED: ALPRAZOLAM 0.25 MG TABLET PO PRN (00:59)
[2019-02-22] MEDS ORDERED: NITROGLYCERIN 0.4 MG/TAB SL PRN (00:59)
[2019-02-22] MEDS ORDERED: ACETAMINOPHEN 500 MG TAB PO PRN (00:59)
[2019-02-22] MEDS ORDERED: ONDANSETRON 4 MG/2 ML VIAL ONE (01:26)
[2019-02-22 02:35] VITALS: BMI 19.7
[2019-02-22] MEDS: MORPHINE 4 MG/ML SYR IV PRN ×2 (02:36→06:49)
[2019-02-22 05:13] LABS: HDL Cholesterol 63 mg/dL (40-60); LDL Cholesterol, Calculated 160 (<130); Troponin I < 0.02 ng/mL (0.0-0.045)
[2019-02-22] MEDS: METOPROLOL TAR 50 MG TAB PO SCH ×2 (06:16→09:00)
[2019-02-22] MEDS ORDERED: PNEUMOCOCCAL VACCINE 0.5 ML IMVAC ONE (08:00)
--- NOTE | 2019-02-22 08:08 | EKG ---
Test Date: 2019-02-21 Test Time: 22:55:27 Chemistry Laboratory Technician: LOIS MEASUREMENT RESULTS: Intervals: Rate: 102 OK: 146 QRSD: 80 QT: 340 QTc: 443 [place]: P: 70 OK: 146 QRS: 58 T: 31 INTERPRETIVE STATEMENTS: Sinus tachycardia Possible Left atrial enlargement Cannot rule out Anterior infarct, age undetermined Abnormal ECG Compared to ECG 01/16/2018 12:23:47 Myocardial infarct finding now present Sinus rhythm no longer present Left ventricular hypertrophy no longer present Electronically Signed On 02-22-19 08:07:20 PRODUCTION LEAD by Brooks Nance
--- NOTE | 2019-02-22 08:14 | RAD REPORT ---
EXAM DESCRIPTION: [place] Single View02/21/2019 11:26 pm CLINICAL HISTORY: Chest pain COMPARISON: 2017 FINDINGS: The right hemidiaphragm remains elevated The The lungs appear clear of acute infiltrate. The heart is normal size IMPRESSION: No acute abnormalities displayed
[2019-02-22 08:57] VITALS: O2SAT 99
[2019-02-22] MEDS ORDERED: ENOXAPARIN 40 MG/0.4 ML SQ SCH (09:00)
[2019-02-22] MEDS ORDERED: ASPIRIN EC 81 MG TAB PO SCH (09:00)
--- NOTE | 2019-02-22 10:42 | P.SSS ---
Patient History Date of Service: 02/22/19 Reason for admission: CHEST PAIN RULE OUT ACUTE CORONARY SYNDROME History of Present Illness: PATIENT IS A 69-YEAR-OLD FEMALE WHO PRESENTS TO THE EMERGENCY ROOM WITH CHEST DISCOMFORT. PAIN IS MAINLY IN THE STERNAL REGION. THERE IS NO RADIATION OF HER PAIN. SHE DOES NOT GET SHORT OF BREATH NOR DID SHE GET DIAPHORETIC. SHE HAS BEEN HAVING THIS VAGUE DISCOMFORT FOR QUITE A WHILE. SHE HAD A STRESS TEST DONE A YEAR AGO WHICH WAS UNREMARKABLE. SHE STATES SHE FEELS MUCH BETTER WHEN I ASSESSED HER IN THE MORNING. SHE HAS SERIAL TROPONINS PENDING AND IF THESE ARE NEGATIVE SHE IS STABLE FOR DISCHARGE HOME WITH OUTPATIENT FOLLOW-UP. 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 She is single. She has no children. - Family History Family History: Reviewed- Non-Contributory - Family History Father -: Heart disease - Social History Smoking Status: Never smoker Alcohol use: No CD- Drugs: No Caffeine use: No Place of Residence: Home Review of Systems 10-point ROS is otherwise unremarkable Physical Examination - Vital Signs Temperature: 99 F Blood Pressure: 133/83 Pulse: 86 Respirations: 18 Pulse Ox (%): 99 - Physical Exam General: Alert, In no apparent distress, Oriented x3 HEENT: Atraumatic, PERRLA, Mucous membr. moist/pink, EOMI, Sclerae nonicteric Neck: Supple, 2+ carotid pulse no bruit, No LAD, Without JVD or thyroid abnormality Respiratory: Clear to auscultation bilaterally, Normal air movement Cardiovascular: Regular rate/rhythm, Normal S1 S2, No murmurs Gastrointestinal: Normal bowel sounds, Soft and benign, Non-distended, No tenderness Musculoskeletal: No clubbing, No swelling, No tenderness Integumentary: No rashes Neurological: Normal gait, Normal speech, Normal strength at 5/5 x4 extr, Normal tone, Sensation intact, Cranial nerves 3-12 intact, Normal affect Lymphatics: No axilla or inguinal lymphadenopathy - Studies Laboratory Data (last 24 hrs) 02/21/19 22:55: PT 11.9, INR 1.01 02/21/19 22:55: WBC 9.0, Hgb 13.5, Hct 40.9, Plt Count 230 02/21/19 22:55: Sodium 143, Potassium 4.1, BUN 12, Creatinine 0.82, Glucose 138 H, Magnesium 1.9, Total Bilirubin 0.8, AST 37, ALT 44, Alkaline Phosphatase 120 H - Diagnosis (Problem(s)) (1) Chest pain, rule out acute myocardial infarction Status: Acute (2) Costochondritis Status: Acute Treatment Summary: PATIENT HAD SERIAL TROPONINS, EKG, AND ECHOCARDIOGRAM. THESE WERE UNREMARKABLE. PATIENT IS CLINICALLY DOING MUCH BETTER. SYMPTOMS HAVE COMPLETELY RESOLVED. AT THIS TIME PATIENT IS DOING WELL ENOUGH TO BE DISCHARGED HOME WITH OUTPATIENT FOLLOW-UP. TROPONIN AT 11:00 A.M. ARE NEGATIVE. THE PATIENT CAN BE DISCHARGED WITH OUTPATIENT FOLLOW-UP. - Disposition Discharge Date: 02/22/19 Disposition: ROUTINE DISCHARGE Condition: GOOD Diet: ADA Activity: Ad migel Critical Care: No Time Spent Managing Pts Care (In Minutes): 50
[2019-02-22 11:00] LABS: Urine Appearance CLOUDY; Urine Blood NEGATIVE (NEG); Urine Color YELLOW; Urine Glucose NEGATIVE (NEG); Urine Protein 1+ (NEG); Urine Specific Gravity >=1.030 (1.005-1.030); Urine pH 6.5 (5.0-7.0)
[2019-02-22 11:10] LABS: Urine Bilirubin NEGATIVE (NEG)
[2019-02-22 12:24] LABS: Urine Bacteria 20-50 /HPF (<20); Urine Culture Reflex Order REFLEXED; Urine Mucus 2+ /HPF (NONE SEEN); Urine RBC <5 /HPF (NONE SEEN)
[2019-02-23 00:42] VITALS: BP 133/83; TEMP 99
--- NOTE | 2019-02-25 08:16 | ECHO ---
HEIGHT: 5 ft 4 in WEIGHT: 114 lb 14.4 oz DATE OF STUDY: 02/22/[address]: Crystal May MD 2-DIMENSIONAL: YES M.MODE: YES DOPPLER: YES COLOR FLOW: YES TDS: NO PORTABLE: NO DEFINITY: NO BUBBLE STUDY: NO DIAGNOSIS: CHEST PAIN CARDIAC HISTORY: CATHERIZATION: NO SURGERY: NO PROSTHETIC VALVE: NO PACEMAKER: NO MEASUREMENTS (cm) DIASTOLIC (NORMALS) SYSTOLIC (NORMALS) IVSd 1.1 (0.6-1.2) LA Diam 3.5 (1.9-4.0) LVEF 77% LVIDd 4.3 (3.5-5.7) LVIDs 2.3 (2.0-3.5) %FS 46% LVPWd 1.0 (0.6-1.2) Ao Diam 2.3 (2.0-3.7) 2 DIMENSIONAL ASSESSMENT: RIGHT ATRIUM: NORMAL LEFT ATRIUM: NORMAL RIGHT VENTRICLE: NORMAL LEFT VENTRICLE: NORMAL TRICUSPID VALVE: NORMAL MITRAL VALVE: NORMAL PULMONIC VALVE: NORMAL AORTIC VALVE: NORMAL PERICARDIAL EFFUSION: NONE AORTIC ROOT: NORMAL LEFT VENTRICULAR WALL MOTION: NORMAL DOPPLER/COLOR FLOW: NORMAL COMMENTS: NORMAL 2D ECHOCARDIOGRAM WITH DOPPLER. NO WALL MOTION ABNORMALITY. NO EFFUSION. TECHNOLOGIST: Kamila AMADOR
== END 2019-02-22 13:25 | disposition home or self-care (01) ==
LOC: ER 22:35 → ERHOLD 02-22 00:59 → 4TH 02-22 01:59
PROVIDERS: ADMIT Hospitalist; ATTEND Hospitalist
DX: M94.0 Chondrocostal junction syndrome [Tietze] (principal); R07.9 Chest pain, unspecified
CPT/HCPCS: 96361; 93005; 93306; 87088; 85025; 81001; 80048; 36415; 83735; 85610; 80061; 82947; 80076; 84484 ×3; 83880; 71045; 96374; 99285; J1650; J7030; J2405 ×2; G0378 ×2; 87086; 90670

== ENCOUNTER 2020-10-28 14:45 | Emergency (ER) | payer OTHER ==
--- NOTE | 2020-10-28 16:15 | RAD REPORT ---
EXAM DESCRIPTION: RAD - Chest Single View - 10/28/2020 3:33 pm CLINICAL HISTORY: weakness COMPARISON: Chest Single View dated 02/21/2019; Chest Single View dated 01/16/2018; CHEST SINGLE VIEW dated 04/10/2014; CHEST SINGLE VIEW dated 07/31/2011 FINDINGS: Lines: None. Lungs: Mild increased ill-defined opacities in the lung bases, right greater than left Pleural: No significant pleural effusions or pneumothorax. Cardiac: The heart size is within normal limits. Bones: No acute fractures. Other: IMPRESSION: Mild increased airspace disease in the lung bases could reflect pneumonia.
[2020-10-28 16:48] LABS: Absolute Lymphocytes (CBC) 0.9 K/uL (0.7-4.9); Basophils % 0.2 % (0-1.3); Hematocrit 33.6 % (36.0-45.0); Lymphocytes % 17.1 % (15.3-44.8); MPV 8.9 fL (7.6-11.3); RBC Red Blood Cell Count 3.81 M/uL (3.86-4.86)
[2020-10-28 17:05] LABS: ALT/SGPT 21 U/L (12-78); AST/SGOT 34 U/L (15-37); Albumin 3.3 g/dL (3.4-5.0); Alkaline Phosphatase 81 U/L (45-117); BUN Blood Urea Nitrogen 11 mg/dL (7-18); Bicarbonate 23 mmol/L (21-32); Bilirubin Direct 0.2 mg/dL (0-0.2); Bilirubin Total 0.5 mg/dL (0.2-1.0); Glucose Level 97 mg/dL (74-106); Magnesium 1.8 mg/dL (1.8-2.4); NT PRO-BNP 104 pg/mL (<125); Potassium 3.4 mmol/L (3.5-5.1); Protein, Total 7.6 g/dL (6.4-8.2); Sodium Level 138 mmol/L (136-145); Troponin (Emerg Dept Use Only) < 0.02 ng/mL (0.0-0.045)
[2020-10-28] MEDS ORDERED: KETOROLAC 30 MG/ML INJ ONE (17:18)
[2020-10-28] MEDS ORDERED: NA CHLORIDE 0.9% 1,000 ML ONE (17:18)
[2020-10-28 17:37] LABS: Protime INR 1.16
[2020-10-28 20:57] LABS: Urine Blood Trace-lysed (Negative); Urine Glucose Negative (Negative); Urine Protein 2+ (Negative); Urine Specific Gravity >=1.030 (1.005-1.030); Urine pH 6.5 (5.0-7.0)
[2020-10-28] MEDS ORDERED: CASIRIVIMAB/IMDEVIMAB 10 ML VIAL ONE (21:54)
[2020-10-28] MEDS ORDERED: NA CHLORIDE 0.9% 250 ML ONE (21:55)
--- NOTE | 2020-10-29 00:51 | EDPHYS ---
Physician Documentation [facility] Name: Sandi Powell Age: 70 yrs Sex: Female : 1950 Arrival Date: 10/28/2020 Time: 15:18 Bed 30 Private MD: ED Physician Crystal Christiansen HPI: 10/28 18:25 This 70 yrs old Black Female presents to ER via EMS with complaints of cough, weakness. jmm 18:25 Onset: The symptoms/episode began/occurred gradually, 2 day(s) ago. Modifying factors: jmm The symptoms are alleviated by nothing. the symptoms are aggravated by nothing. Associated signs and symptoms: Pertinent positives: sore throat, Pertinent negatives: fever. This is a 70-year-old female with a history of hypertension that presents to the emergency department with complaints of cough, generalized fatigue, chest congestion beginning this past Monday. Family member recently tested positive for coronavirus. Patient states she is immunized.. Historical: - Allergies: 15:29 No Known Allergies; kh1 - Immunization history:: Adult Immunizations up to date, Client reports receiving the 1st dose of the Covid vaccine. - Social history:: Smoking status: Patient denies any tobacco usage or history of. - Code Status:: Full code. ROS: 18:25 Constitutional: Positive for body aches, fatigue. jmm 18:25 Respiratory: Positive for cough. 18:25 Neuro: Positive for weakness. 18:25 All other systems are negative. Exam: 18:25 Constitutional: This is a well developed, well nourished patient who is awake, alert, jmm and in no acute distress. Head/Face: atraumatic. Eyes: EOMI, no conjunctival erythema appreciated ENT: Moist Mucus Membranes Neck: Trachea midline, Supple Chest/axilla: Normal chest wall appearance and motion. Cardiovascular: Regular rate and rhythm. No edema appreciated Respiratory: Normal respirations, no respiratory distress appreciated Abdomen/GI: Non distended, soft Back: Normal ROM Skin: General appearance color normal MS/ Extremity: Moves all extremities, no obvious deformities appreciated, no edema noted to the lower extremities Neuro: Awake and alert, normal gait Psych: Behavior is normal, Mood is normal, Patient is cooperative and pleasant Vital Signs: 15: BP 163 / 95; Pulse 102; Resp 16; Temp 99.0; Pulse Ox 100% on R/A; kh1 18:23 BP 135 / 83; Pulse 107; Resp 18; Temp 98.9; Pulse Ox 100% ; kh1 20:00 BP 138 / 88; Pulse 97; Resp 23; Temp 98.5(O); Pulse Ox 100% on R/A; wr 21:38 BP 144 / 88; Pulse 102; Resp 22; Temp 99.8(O); Pulse Ox 100% on R/A; wr 22:40 BP 139 / 80; Pulse 90; Resp 20; Temp 99.2; Pulse Ox 100% on R/A; dc2 23:40 BP 140 / 83; Pulse 95; Resp 20; Temp 98.9(O); Pulse Ox 100% on R/A; wr 10/29 00:40 BP 140 / 73; Pulse 88; Resp 20; Temp 98.8; Pulse Ox 100% ; wr MDM: 10/28 15:29 Patient medically screened. [facility] 10/29 00:49 Data reviewed: vital signs, nurses notes. Counseling: I had a detailed discussion with luli the patient and/or guardian regarding: the historical points, exam findings, and any diagnostic results supporting the discharge/admit diagnosis, lab results, radiology results, the need for outpatient follow up, to return to the emergency department if symptoms worsen or persist or if there are any questions or concerns that arise at home. ED course: Patient is alert nontoxic in appearance in the ED. Advised to closely follow-up with her PCP and otherwise told to return to the ED if she experiences any worsening symptoms. Patient understood and agrees with plan of care. 10/28 15:19 Order name: Basic Metabolic Panel; Complete Time: 17:09 [facility] 10/28 15:19 Order name: CBC with Diff; Complete Time: 16:57 [facility] 10/28 15:19 Order name: LFT's; Complete Time: 17:09 [facility] 10/28 15:19 Order name: Magnesium; Complete Time: 17:09 [facility] 10/28 15:19 Order name: NT PRO-BNP; Complete Time: 17:09 [facility] 10/28 15:19 Order name: PT-INR; Complete Time: 17:48 [facility] 10/28 15:19 Order name: Troponin (emerg Dept Use Only); Complete Time: 17:09 [facility] 10/28 15:19 Order name: XRAY Chest (1 view); Complete Time: 16:20 [facility] 10/28 15:19 Order name: EKG; Complete Time: 15:20 [facility] 10/28 15:19 Order name: Cardiac monitoring; Complete Time: 16:26 [facility] 10/28 20:09 Order name: SARS-COV-2 RT PCR; Complete Time: 20:11 [facility] 10/28 20:57 Order name: Urine Dipstick-Ancillary; Complete Time: 21:02 [facility] 10/28 15:19 Order name: EKG - Nurse/Tech; Complete Time: 16:26 [facility] 10/28 15:19 Order name: IV Saline Lock; Complete Time: 16: [facility] 10/28 15:19 Order name: Labs collected and sent; Complete Time: 16: [facility] 10/28 15:19 Order name: O2 Per Protocol; Complete Time: 16: [facility] 10/28 15:19 Order name: O2 Sat Monitoring; Complete Time: 16: [facility] 10/28 15:19 Order name: Urine Dipstick-Ancillary (obtain specimen) [facility] 10/28 16:48 Order name: Labs - recollect needed: recollect light blue; Complete Time: 18:43 bd Administered Medications: 10/28 21:38 Drug: Casirivimab-Imdevimab Dose Pack 120 mg/mL-120 mg/mL (EUA) 1 application Route: kc4 IV; Rate: calculated rate; Site: right forearm; Disposition Summary: 10/29/20 00:50 Discharge Ordered Condition: Stable [facility] Location: Home(10/29/20 01:18) wr Diagnosis - Coronavirus infection, unspecified [facility] Followup: [facility] - With: Gabriel Overton MD - When: 2 - 3 days - Reason: Recheck today's complaints, Continuance of care, Re-evaluation by your physician Followup: wr - With: Crystal Christiansen MD - When: 2 - 3 days - Reason: Discharge Instructions: - Discharge Summary Sheet [facility] - COVID-19 [facility] Forms: - Medication Reconciliation Form [facility] - Thank You Letter [facility] - Antibiotic Education [facility] - Prescription Opioid Use [facility] Addendum: 10/31/2020 17:42 Co-signature as Attending Physician, Crystal echeverria a2 Signatures: Dispatcher [employer] EDUT Bell Stewart Joel, PA PA jmm Alzahri, Mohammad, MD MD ma2 Nan Hernandez 1 Farhana Hagan4 Bryce Rose Corrections: (The following items were deleted from the chart) 10/28 19:08 15:20 CORONAVIRUS+MR.LAB.BRZ ordered. [facility] 10/29 01:18 00:50 Home [facility] margarito
--- NOTE | 2020-10-29 00:51 | ER ---
Nurse's Notes [facility] Name: Sandi Powell Age: 70 yrs Sex: Female : 1950 Arrival Date: 10/28/2020 Time: 15:18 Bed 30 Private MD: Diagnosis: Coronavirus infection, unspecified Presentation: 10/28 15:22 Chief complaint: Patient states: to ER via EMS c/o weakness times 5 days also c/o kh1 decreased appetite denies cp denies sob. Coronavirus screen: Vaccine status: Patient reports receiving the 1st dose of the Covid vaccine. Date September 06, 2020 headache, Client presents with at least one sign or symptom that may indicate coronavirus-19. Standard/surgical mask placed on the client. Provider contacted for isolation considerations. Ebola Screen: No symptoms or risks identified at this time. Initial Sepsis Screen: Does the patient meet any 2 criteria? No. Patient's initial sepsis screen is negative. Does the patient have a suspected source of infection? Yes: Other: covid symptoms. Risk Assessment: Do you want to hurt yourself or someone else? Patient reports no desire to harm self or others. Onset of symptoms was October 23, 2020. 15:22 Method Of Arrival: EMS: [facility] 15:22 Acuity: PATRICIA 3 [facility] Triage Assessment: 15:29 General: Appears in no apparent distress. Behavior is calm, cooperative, appropriate [facility] for age. Pain: Denies pain. Neuro: No deficits noted. Level of Consciousness is awake, alert, obeys commands, Oriented to person, place, time, Material Checker are equal bilaterally Moves all extremities. Gait is unsteady, Speech is normal. Cardiovascular: No deficits noted. Reports shortness of breath. Respiratory: Reports shortness of breath at rest Airway is patent Respiratory effort is even, unlabored, Respiratory pattern is regular. GI: No deficits noted. Historical: - Allergies: 15:29 No Known Allergies; [facility] - Immunization history:: Adult Immunizations up to date, Client reports receiving the 1st dose of the Covid vaccine. - Social history:: Smoking status: Patient denies any tobacco usage or history of. - Code Status:: Full code. Screenin:31 Abuse screen: Denies threats or abuse. Nutritional screening: No deficits noted. kh1 Tuberculosis screening: No symptoms or risk factors identified. Fall Risk Gait- Weak (10 pts.). Assessment: 15:31 General: Appears in no apparent distress. comfortable, Behavior is calm, cooperative, kh1 appropriate for age. Pain: Denies pain. Vital Signs: 15:22 BP 163 / 95; Pulse 102; Resp 16; Temp 99.0; Pulse Ox 100% on R/A; kh1 18:23 BP 135 / 83; Pulse 107; Resp 18; Temp 98.9; Pulse Ox 100% ; kh1 20:00 BP 138 / 88; Pulse 97; Resp 23; Temp 98.5(O); Pulse Ox 100% on R/A; wr 21:38 BP 144 / 88; Pulse 102; Resp 22; Temp 99.8(O); Pulse Ox 100% on R/A; wr 22:40 BP 139 / 80; Pulse 90; Resp 20; Temp 99.2; Pulse Ox 100% on R/A; dc2 23:40 BP 140 / 83; Pulse 95; Resp 20; Temp 98.9(O); Pulse Ox 100% on R/A; wr 10/29 00:40 BP 140 / 73; Pulse 88; Resp 20; Temp 98.8; Pulse Ox 100% ; wr ED Course: 10/28 15:18 Patient arrived in ED. iw 15:18 Tim Stafford PA is PHCP. jmm 15:18 Crystal Christiansen MD is Attending Physician. m 15:22 Nan Hernandez is Primary Nurse. kh1 15:29 Triage completed. kh1 15:30 Arm band placed on right wrist. kh1 15:31 No provider procedures requiring assistance completed. kh1 15:32 Patient has correct armband on for positive identification. Bed in low position. Call [facility] light in reach. Side rails up X 1. 15:33 XRAY Chest (1 view) In Process Unspecified. EDMS 16:26 Basic Metabolic Panel Sent. kh1 16:26 CBC with Diff Sent. kh1 16:26 LFT's Sent. kh1 16:26 Magnesium Sent. kh1 16:26 NT PRO-BNP Sent. kh1 16:26 PT-INR Sent. 1 16:26 Troponin (emerg Dept Use Only) Sent. [facility] 10/29 00:50 Gabriel Overton MD is Referral Physician. luli 01:15 Crystal Christiansen MD is Referral Physician. wr Administered Medications: 10/28 21:38 Drug: Casirivimab-Imdevimab Dose Pack 120 mg/mL-120 mg/mL (EUA) 1 application Route: kc4 IV; Rate: calculated rate; Site: right forearm; Outcome: 10/29 00:50 Discharge ordered by . luli 01:18 Patient left the ED. Signatures: Dispatcher [employer] EDMS Tim Stafford PA PA Josiane Saldaña, JAYDEN RN Nan Avina 1 Farhana Hagan4 Bryce Rose Megan Redmond RN RN dc2 Corrections: (The following items were deleted from the chart) 10/28 19:08 16:27 CORONAVIRUS+MR.LAB.MICHAEL drawn and sent. [address]
[2020-10-29 02:14] VITALS: O2SAT 100
[2020-10-29 02:22] VITALS: BP 140/73; TEMP 98.8
== END 2020-10-29 01:18 | disposition home or self-care (01) ==
LOC: ER 14:45
DX: U07.1 COVID-19 (principal)
CPT/HCPCS: 93005; 85025; 80048; 36415; 83735; 85610; 80076; 81003; 84484; 83880; 71045; 96374; 99284; U0003; J7050; J7030